=== PATIENT | male | born 1940 | race Caucasian/White ===

== ENCOUNTER 2022-08-03 04:08 | Day surgery (SDC) | payer OTHER, BC ==
[2022-07-27 15:16] VITALS: BMI 33.6
[2022-08-03] MEDS ORDERED: DEXMEDETOMIDINE HCL 200 MCG/2 ML IVPB ONE (08:28)
[2022-08-03] MEDS ORDERED: MIDAZOLAM HCL 2 MG/2 ML SINGLE DOSE VIAL ONE (08:34)
[2022-08-03] MEDS ORDERED: FENTANYL CITRATE/PF 50 MCG/ML VIAL ONE (08:34)
[2022-08-03] MEDS ORDERED: ceFAZolin SODIUM 1 GM VIAL ONE (09:18)
[2022-08-03] MEDS ORDERED: ceFAZolin SODIUM 1 GM VIAL IVPB ONE (09:20)
[2022-08-03] MEDS ORDERED: PROPOFOL 20 ML ONE (09:20)
[2022-08-03] MEDS ORDERED: LIDOCAINE HCL 1%, 10 MG/ML (20ML VIAL) INF ONE ×2 (09:26)
[2022-08-03] MEDS ORDERED: HEPARIN NA (PORCINE) 5,000 UNITS/ML 1ML VIAL ONE (09:39)
[2022-08-03] MEDS ORDERED: PROMETHAZINE HCL 25 MG/1 ML VIAL IVPUSH PRN (10:27)
[2022-08-03] MEDS ORDERED: oxyCODONE HCL 5 MG TABLET PO PRN ×2 (10:27)
[2022-08-03] MEDS ORDERED: ONDANSETRON 4 MG/2 ML VIAL IVPUSH PRN (10:27)
[2022-08-03] MEDS ORDERED: KETOROLAC TROMETHAMINE 30 MG/1 ML VIAL IVPUSH ONE (10:28)
[2022-08-03] MEDS ORDERED: LACTATED RINGERS SOLUTION 1,000 ML IV SCH (10:30)
[2022-08-03] MEDS ORDERED: CLOPIDOGREL BISULFATE 75 MG TABLET (FP) PO ONE (10:35)
[2022-08-03] MEDS ORDERED: KETOROLAC TROMETHAMINE 30 MG/1 ML VIAL ONE (11:22)
[2022-08-03 12:21] VITALS: TEMP 98.7
[2022-08-03 12:38] VITALS: BP 140/56; PULSE 64; RESP 20
== END 2022-08-03 12:41 | disposition home or self-care (01) ==
LOC: JASU-SURG 04:08
PROVIDERS: ATTEND Surgery Vascular Surgery
PROC: 047U3ZZ Dilation of Left Peroneal Artery, Percutaneous Approach (ICD-10-PCS; 2022-08-03)
PROC: 047L3DZ Dilation of Left Femoral Artery with Intraluminal Device, Percutaneous Approach (ICD-10-PCS; principal; 2022-08-03 10:30)
DX: I73.9 Peripheral vascular disease, unspecified (principal); E11.622 Type 2 diabetes mellitus with other skin ulcer; L97.929 Non-pressure chronic ulcer of unspecified part of left lower leg with unspecified severity; Z79.85 Long-term (current) use of injectable non-insulin antidiabetic drugs; Z79.84 Long term (current) use of oral hypoglycemic drugs
CPT/HCPCS: 37227; 37229; C1877; 76000-TC-FY; 82962; 94760; C1725; C1760; J1644

== ENCOUNTER 2024-06-12 10:56 | Inpatient (IN) | payer OTHER, BC ==
[2024-06-12] MEDS ORDERED: ACETAMINOPHEN 500 MG TABLET (FP) ONE (12:32)
[2024-06-12] MEDS: ACETAMINOPHEN 500 MG TABLET (FP) PO ONE (12:45)
[2024-06-12 12:57] LABS: BASO % 1.1 % (0-2.0); EOS % 1.1 % (0-4.5); HEMATOCRIT 27.7 % (35.4-49); HEMOGLOBIN 8.8 GM/dL (11.7-16.9); LYMPH % 8.9 % (8-40); MCH 30.3 pg (25.7-33.7); MCHC 31.7 g/dl (32.0-35.9); MEAN CELL VOLUME 95.4 fl (80-96); MEAN PLT VOLUME 8.6 fl (7.5-11.1); MONO % 7.6 % (3.8-10.2); NEUT % 81.3 % (42.8-82.8); PLATELET COUNT 416 10^3/uL (134-434); WHITE BLOOD COUNT 11.9 K/mm3 (4.0-10.0)
[2024-06-12 13:02] LABS: INR 1.66 (0.83-1.09); PROTHROMBIN TIME (PATIENT) 18.8 SEC (9.7-13.0)
[2024-06-12 13:05] LABS: ACTIVATED PTT 37.2 SECONDS (25.2-36.5)
[2024-06-12 13:14] LABS: POTASSIUM 5.3 mmol/L (3.5-5.1)
[2024-06-12 13:29] LABS: ALBUMIN 2.9 g/dl (3.4-5.0); BLOOD UREA NITROGEN 62.5 mg/dL (7-18); CALCIUM 8.6 mg/dL (8.5-10.1); MAGNESIUM 2.5 mg/dL (1.8-2.4)
[2024-06-12 13:32] LABS: CREATININE 1.8 mg/dL (0.55-1.3); PHOSPHOROUS 3.6 mg/dL (2.5-4.9)
[2024-06-12 13:33] LABS: BILIRUBIN,TOTAL 0.4 mg/dL (0.2-1)
[2024-06-12 13:34] LABS: TOT PROT 6.5 g/dl (6.4-8.2)
[2024-06-12] MEDS ORDERED: VANCOMYCIN HCL 1,500 MG in DEXTROSE 5%-WATER - 500 ML IVPB ONE (13:52)
[2024-06-12] MEDS ORDERED: SODIUM ZIRCONIUM CYCLOSILICATE (LOKELMA) 10 GM PACKET ONE (14:28)
[2024-06-12] MEDS ORDERED: PIPERACILLIN/TAZOB 2.25 GM 2.25 GM/50 ML BAG IVPB ONE (14:29)
[2024-06-12] MEDS: PIPERACILLIN/TAZOB 2.25 GM 2.25 GM in DEXTROSE 5%-WATER - 50 ML IVPB ONE (14:47)
[2024-06-12] MEDS: SODIUM ZIRCONIUM CYCLOSILICATE (LOKELMA) 5 GM PACKET PO ONE (14:47)
[2024-06-12] MEDS: VANCOMYCIN PREMIX 1.5 GM 1,500 MG/300 ML BAG IVPB ONE (15:44)
[2024-06-12] MEDS ORDERED: INSULIN ASPART SLIDING SCALE (NOVOLOG) 1 VIAL SQ SCH (16:30)
[2024-06-12 17:35] VITALS: BMI 30.6
[2024-06-12] MEDS: APIXABAN 2.5 MG TABLET PO SCH (21:24)
[2024-06-12] MEDS: TAMSULOSIN HCL 0.4 MG CAP PO SCH (21:24)
[2024-06-13] MEDS: ACETAMINOPHEN 500 MG TABLET (FP) PO PRN (04:01)
[2024-06-13] MEDS: PIOGLITAZONE HCL 30 MG TABLET PO SCH (06:03)
[2024-06-13] MEDS: INSULIN ASPART SLIDING SCALE (NOVOLOG) 1 VIAL SQ SCH (06:03)
[2024-06-13] MEDS: FOLIC ACID 1 MG TABLET (FP) PO SCH (09:26)
[2024-06-13] MEDS: FUROSEMIDE 40 MG TABLET (FP) PO SCH (09:26)
[2024-06-13] MEDS: FINASTERIDE 5 MG TABLET (FP) PO SCH (09:26)
[2024-06-13] MEDS: SACUBITRIL/VALSARTAN 49 MG-51 MG TABLET PO SCH (09:27)
[2024-06-13] MEDS: COLLAGENASE CLOSTRIDIUM HIST. 30 GRAMS TUBE TP SCH (11:48)
[2024-06-13 12:33] LABS: BASO % 1.1 % (0-2.0); EOS % 1.8 % (0-4.5); HEMATOCRIT 30.4 % (35.4-49); HEMOGLOBIN 9.6 GM/dL (11.7-16.9); LYMPH % 8.7 % (8-40); MCH 30.1 pg (25.7-33.7); MCHC 31.8 g/dl (32.0-35.9); MEAN CELL VOLUME 94.7 fl (80-96); MEAN PLT VOLUME 8.4 fl (7.5-11.1); NEUT % 80.4 % (42.8-82.8); PLATELET COUNT 485 10^3/uL (134-434); RBC 3.21 M/mm3 (4.00-5.60); RDW 15.2 % (11.9-15.9); WHITE BLOOD COUNT 12.5 K/mm3 (4.0-10.0)
[2024-06-13] MEDS ORDERED: SODIUM ZIRCONIUM CYCLOSILICATE (LOKELMA) 5 GM PACKET PO ONE ×2 (13:16→14:32)
[2024-06-13 13:58] LABS: POTASSIUM 5.7 mmol/L (3.5-5.1)
[2024-06-13 14:00] LABS: ALBUMIN 3.1 g/dl (3.4-5.0); CALCIUM 8.7 mg/dL (8.5-10.1)
[2024-06-13 14:04] LABS: CREATININE 1.7 mg/dL (0.55-1.3)
[2024-06-13 14:05] LABS: BILIRUBIN,TOTAL 0.4 mg/dL (0.2-1)
[2024-06-13 14:24] LABS: N-TERMINAL BNP 36118.3 pg/ml (5-450)
[2024-06-13] MEDS: PIPERACILLIN/TAZOB 2.25 GM 2.25 GM in DEXTROSE 5%-WATER - 50 ML IVPB SCH (16:17)
[2024-06-13] MEDS: SODIUM ZIRCONIUM CYCLOSILICATE (LOKELMA) 5 GM PACKET PO ONE (17:30)
[2024-06-13] MEDS: VANCOMYCIN PREMIX 1.5 GM 1,500 MG/300 ML BAG IVPB SCH (17:37)
[2024-06-13] MEDS ORDERED: CALCIUM GLUCONATE IN NACL 1 GM/50 ML BAG IVPB ONE (19:30)
[2024-06-13] MEDS: CALCIUM GLUC IN NACL, ISO-OSM 1 GM/50 ML BAG IVPB ONE (20:04)
[2024-06-13 20:16] LABS: POTASSIUM 5.8 mmol/L (3.5-5.1)
[2024-06-13 20:17] LABS: CALCIUM 8.4 mg/dL (8.5-10.1)
[2024-06-13 20:18] LABS: BLOOD UREA NITROGEN 53.7 mg/dL (7-18)
[2024-06-13 20:21] LABS: CREATININE 1.8 mg/dL (0.55-1.3)
[2024-06-13] MEDS: ROSUVASTATIN CA 5 MG TABLET PO SCH (21:09)
[2024-06-14] MEDS: SODIUM ZIRCONIUM CYCLOSILICATE (LOKELMA) 5 GM PACKET PO ONE (02:21)
[2024-06-14] MEDS ORDERED: PIPERACILLIN/TAZOBACTAM 2.25 GM VIAL IVPB ONE (08:13)
[2024-06-14 09:50] LABS: BASO % 1.4 % (0-2.0); EOS % 3.3 % (0-4.5); HEMATOCRIT 28.2 % (35.4-49); HEMOGLOBIN 9.1 GM/dL (11.7-16.9); LYMPH % 10.6 % (8-40); MCH 30.6 pg (25.7-33.7); MCHC 32.2 g/dl (32.0-35.9); MEAN CELL VOLUME 94.8 fl (80-96); MEAN PLT VOLUME 8.4 fl (7.5-11.1); MONO % 7.5 % (3.8-10.2); NEUT % 77.2 % (42.8-82.8); PLATELET COUNT 427 10^3/uL (134-434); RBC 2.97 M/mm3 (4.00-5.60)
[2024-06-14 10:02] LABS: POTASSIUM 4.6 mmol/L (3.5-5.1)
[2024-06-14 10:05] LABS: CALCIUM 8.5 mg/dL (8.5-10.1)
[2024-06-14 10:06] LABS: ALBUMIN 2.7 g/dl (3.4-5.0); MAGNESIUM 2.2 mg/dL (1.8-2.4)
[2024-06-14 10:09] LABS: CREATININE 1.7 mg/dL (0.55-1.3); PHOSPHOROUS 3.8 mg/dL (2.5-4.9)
[2024-06-14 10:10] LABS: BILIRUBIN,TOTAL 0.4 mg/dL (0.2-1); TOT PROT 6.2 g/dl (6.4-8.2)
[2024-06-14] MEDS: ASPIRIN COATED 81 MG TABLET.EC PO SCH (18:46)
[2024-06-15 10:11] LABS: BASO % 1.6 % (0-2.0); EOS % 4.3 % (0-4.5); HEMATOCRIT 28.7 % (35.4-49); HEMOGLOBIN 9.1 GM/dL (11.7-16.9); LYMPH % 11.4 % (8-40); MCHC 31.8 g/dl (32.0-35.9); MEAN CELL VOLUME 94.6 fl (80-96); MEAN PLT VOLUME 8.4 fl (7.5-11.1); MONO % 8.1 % (3.8-10.2); NEUT % 74.6 % (42.8-82.8); PLATELET COUNT 454 10^3/uL (134-434); RBC 3.04 M/mm3 (4.00-5.60); RDW 15.3 % (11.9-15.9); WHITE BLOOD COUNT 11.2 K/mm3 (4.0-10.0)
[2024-06-15] MEDS: SODIUM ZIRCONIUM CYCLOSILICATE (LOKELMA) 5 GM PACKET PO SCH (10:52)
[2024-06-15 11:00] LABS: POTASSIUM 5.4 mmol/L (3.5-5.1)
[2024-06-15 11:02] LABS: ALBUMIN 2.7 g/dl (3.4-5.0); CALCIUM 8.2 mg/dL (8.5-10.1)
[2024-06-15 11:03] LABS: MAGNESIUM 2.2 mg/dL (1.8-2.4)
[2024-06-15 11:05] LABS: BLOOD UREA NITROGEN 37.6 mg/dL (7-18)
[2024-06-15 11:06] LABS: CREATININE 1.9 mg/dL (0.55-1.3)
[2024-06-15 11:08] LABS: BILIRUBIN,TOTAL 0.4 mg/dL (0.2-1); PHOSPHOROUS 4.1 mg/dL (2.5-4.9)
[2024-06-15 11:10] LABS: TOT PROT 6.2 g/dl (6.4-8.2)
[2024-06-15] MEDS: VANCOMYCIN/WATER 1250 MG 1,250 MG/250 ML BAG IVPB SCH (15:05)
[2024-06-17 10:27] LABS: BASO % 1.8 % (0-2.0); EOS % 4.8 % (0-4.5); HEMATOCRIT 27.5 % (35.4-49); HEMOGLOBIN 8.9 GM/dL (11.7-16.9); LYMPH % 10.3 % (8-40); MCH 30.6 pg (25.7-33.7); MCHC 32.4 g/dl (32.0-35.9); MEAN CELL VOLUME 94.4 fl (80-96); MEAN PLT VOLUME 8.2 fl (7.5-11.1); MONO % 8.1 % (3.8-10.2); PLATELET COUNT 412 10^3/uL (134-434); RBC 2.92 M/mm3 (4.00-5.60); RDW 15.1 % (11.9-15.9); WHITE BLOOD COUNT 10.6 K/mm3 (4.0-10.0)
[2024-06-17 10:46] LABS: POTASSIUM 5.1 mmol/L (3.5-5.1)
[2024-06-17 10:54] LABS: CALCIUM 7.9 mg/dL (8.5-10.1)
[2024-06-17 10:55] LABS: ALBUMIN 2.7 g/dl (3.4-5.0); MAGNESIUM 2.2 mg/dL (1.8-2.4)
[2024-06-17 10:58] LABS: PHOSPHOROUS 4.4 mg/dL (2.5-4.9)
[2024-06-17 10:59] LABS: BILIRUBIN,TOTAL 0.3 mg/dL (0.2-1); TOT PROT 6.3 g/dl (6.4-8.2)
[2024-06-18] MEDS: DOCUSATE SODIUM 100 MG CAPSULE (FP) PO ONE (04:32)
[2024-06-18 10:05] LABS: BASO % 1.8 % (0-2.0); EOS % 5.2 % (0-4.5); HEMATOCRIT 27.9 % (35.4-49); HEMOGLOBIN 8.8 GM/dL (11.7-16.9); LYMPH % 9.6 % (8-40); MCH 29.9 pg (25.7-33.7); MCHC 31.4 g/dl (32.0-35.9); MEAN CELL VOLUME 95.3 fl (80-96); MEAN PLT VOLUME 8.5 fl (7.5-11.1); MONO % 8.1 % (3.8-10.2); NEUT % 75.3 % (42.8-82.8); PLATELET COUNT 378 10^3/uL (134-434); RBC 2.93 M/mm3 (4.00-5.60); RDW 15.1 % (11.9-15.9); WHITE BLOOD COUNT 10.9 K/mm3 (4.0-10.0)
[2024-06-18 10:07] LABS: INR 1.24 (0.83-1.09); PROTHROMBIN TIME (PATIENT) 14.2 SEC (9.7-13.0)
[2024-06-18 10:46] LABS: POTASSIUM 4.5 mmol/L (3.5-5.1)
[2024-06-18 10:52] LABS: CALCIUM 8.3 mg/dL (8.5-10.1)
[2024-06-18 10:53] LABS: ALBUMIN 2.7 g/dl (3.4-5.0); BLOOD UREA NITROGEN 41.3 mg/dL (7-18); MAGNESIUM 2.3 mg/dL (1.8-2.4)
[2024-06-18 10:56] LABS: PHOSPHOROUS 4.4 mg/dL (2.5-4.9)
[2024-06-18 10:57] LABS: BILIRUBIN,TOTAL 0.4 mg/dL (0.2-1)
[2024-06-19 09:44] LABS: HEMATOCRIT 28.5 % (35.4-49); MCH 30.3 pg (25.7-33.7); MCHC 31.7 g/dl (32.0-35.9); MEAN CELL VOLUME 95.7 fl (80-96); MEAN PLT VOLUME 8.8 fl (7.5-11.1); PLATELET COUNT 396 10^3/uL (134-434); RBC 2.98 M/mm3 (4.00-5.60); RDW 15.6 % (11.9-15.9); WHITE BLOOD COUNT 8.8 K/mm3 (4.0-10.0)
[2024-06-19 09:47] LABS: INR 1.21 (0.83-1.09); PROTHROMBIN TIME (PATIENT) 13.6 SEC (9.7-13.0)
[2024-06-19 10:13] LABS: POTASSIUM 4.6 mmol/L (3.5-5.1)
[2024-06-19 10:17] LABS: ALBUMIN 2.9 g/dl (3.4-5.0); BLOOD UREA NITROGEN 40.7 mg/dL (7-18); CALCIUM 8.4 mg/dL (8.5-10.1); MAGNESIUM 2.5 mg/dL (1.8-2.4)
[2024-06-19 10:21] LABS: PHOSPHOROUS 4.5 mg/dL (2.5-4.9)
[2024-06-19 10:22] LABS: BILIRUBIN,TOTAL 0.5 mg/dL (0.2-1); TOT PROT 6.5 g/dl (6.4-8.2)
[2024-06-19] MEDS: LIDOCAINE HCL 1%, 10 MG/ML (20ML VIAL) INF ONE (13:59)
[2024-06-19] MEDS: BUPIVACAINE HCL/PF 0.5% (5MG/ML) 10 ML VIAL IJ ONE (13:59)
[2024-06-19] MEDS: PIPERACILLIN/TAZOB 2.25 GM 2.25 GM/50 ML BAG IVPB SCH (21:39)
[2024-06-20] MEDS: oxyCODONE HCL 5 MG TABLET PO ONE (00:43)
[2024-06-20] MEDS: PIOGLITAZONE HCL 30 MG TABLET PO SCH (07:46)
[2024-06-20] MEDS: INSULIN ASPART SLIDING SCALE (NOVOLOG) 1 VIAL SQ SCH (07:46)
[2024-06-20] MEDS: TAMSULOSIN HCL 0.4 MG CAP PO SCH (08:50)
[2024-06-20 09:03] LABS: POTASSIUM 4.6 mmol/L (3.5-5.1)
[2024-06-20 09:12] LABS: CALCIUM 8.8 mg/dL (8.5-10.1)
[2024-06-20 09:13] LABS: BLOOD UREA NITROGEN 39.3 mg/dL (7-18); MAGNESIUM 2.4 mg/dL (1.8-2.4)
[2024-06-20 09:16] LABS: CREATININE 1.8 mg/dL (0.55-1.3); PHOSPHOROUS 3.6 mg/dL (2.5-4.9)
[2024-06-20 09:18] LABS: BILIRUBIN,TOTAL 0.5 mg/dL (0.2-1)
[2024-06-20] MEDS: SODIUM ZIRCONIUM CYCLOSILICATE (LOKELMA) 5 GM PACKET PO SCH (09:24)
[2024-06-20] MEDS: FINASTERIDE 5 MG TABLET (FP) PO SCH (09:25)
[2024-06-20] MEDS: SACUBITRIL/VALSARTAN 24 MG-26 MG TABLET PO SCH (09:25)
[2024-06-20] MEDS: FOLIC ACID 1 MG TABLET (FP) PO SCH (09:25)
[2024-06-20] MEDS: FUROSEMIDE 40 MG TABLET (FP) PO SCH (09:25)
[2024-06-20] MEDS: DOCUSATE SODIUM 100 MG CAPSULE (FP) PO SCH (09:25)
[2024-06-20] MEDS: COLLAGENASE CLOSTRIDIUM HIST. 30 GRAMS TUBE TP SCH (09:54)
[2024-06-20] MEDS ORDERED: SACUBITRIL/VALSARTAN 49 MG-51 MG TABLET PO SCH (10:00)
[2024-06-20 11:09] LABS: BASO % 2.2 % (0-2.0); EOS % 4.7 % (0-4.5); HEMATOCRIT 30.4 % (35.4-49); HEMOGLOBIN 9.6 GM/dL (11.7-16.9); LYMPH % 9.1 % (8-40); MCH 30.2 pg (25.7-33.7); MCHC 31.4 g/dl (32.0-35.9); MEAN CELL VOLUME 96.1 fl (80-96); MEAN PLT VOLUME 8.6 fl (7.5-11.1); MONO % 13.1 % (3.8-10.2); NEUT % 70.9 % (42.8-82.8); PLATELET COUNT 394 10^3/uL (134-434); RBC 3.17 M/mm3 (4.00-5.60); RDW 15.3 % (11.9-15.9); WHITE BLOOD COUNT 11.3 K/mm3 (4.0-10.0)
[2024-06-20] MEDS: ACETAMINOPHEN 500 MG TABLET (FP) PO PRN (11:10)
[2024-06-20] MEDS: VANCOMYCIN/WATER 1250 MG 1,250 MG/250 ML BAG IVPB SCH (16:13)
[2024-06-20] MEDS: ROSUVASTATIN CA 5 MG TABLET PO SCH (21:21)
[2024-06-20] MEDS: oxyCODONE HCL 5 MG TABLET PO PRN (22:05)
[2024-06-21 09:05] LABS: HEMATOCRIT 30.3 % (35.4-49); HEMOGLOBIN 9.6 GM/dL (11.7-16.9); MCH 29.9 pg (25.7-33.7); MCHC 31.6 g/dl (32.0-35.9); MEAN CELL VOLUME 94.7 fl (80-96); MEAN PLT VOLUME 8.8 fl (7.5-11.1); PLATELET COUNT 383 10^3/uL (134-434); RBC 3.19 M/mm3 (4.00-5.60); RDW 15.4 % (11.9-15.9); WHITE BLOOD COUNT 10.7 K/mm3 (4.0-10.0)
[2024-06-21] MEDS: APIXABAN 2.5 MG TABLET PO SCH (09:10)
[2024-06-21 09:29] LABS: POTASSIUM 4.5 mmol/L (3.5-5.1)
[2024-06-21 09:39] LABS: ALBUMIN 2.9 g/dl (3.4-5.0); BLOOD UREA NITROGEN 37.4 mg/dL (7-18)
[2024-06-21 09:41] LABS: CALCIUM 8.6 mg/dL (8.5-10.1); MAGNESIUM 2.3 mg/dL (1.8-2.4); PHOSPHOROUS 4.1 mg/dL (2.5-4.9)
[2024-06-21 09:43] LABS: BILIRUBIN,TOTAL 0.5 mg/dL (0.2-1); TOT PROT 6.8 g/dl (6.4-8.2)
[2024-06-21 14:27] VITALS: RESP 18
[2024-06-22 08:17] LABS: HEMATOCRIT 28.7 % (35.4-49); MCH 30.1 pg (25.7-33.7); MCHC 31.6 g/dl (32.0-35.9); MEAN CELL VOLUME 95.3 fl (80-96); MEAN PLT VOLUME 9.3 fl (7.5-11.1); PLATELET COUNT 350 10^3/uL (134-434); RBC 3.01 M/mm3 (4.00-5.60); RDW 15.4 % (11.9-15.9); WHITE BLOOD COUNT 7.6 K/mm3 (4.0-10.0)
[2024-06-22 08:28] LABS: POTASSIUM 4.6 mmol/L (3.5-5.1)
[2024-06-22 08:30] LABS: CALCIUM 8.5 mg/dL (8.5-10.1)
[2024-06-22 08:31] LABS: BLOOD UREA NITROGEN 48.2 mg/dL (7-18)
[2024-06-22 08:34] LABS: CREATININE 2.1 mg/dL (0.55-1.3)
[2024-06-22 09:56] LABS: ANISOCYTOSIS 0; HELMET CELLS 0; HOWELL-JOLLY BODIES 0; MACROCYTOSIS 0; OVALOCYTE 0; ROULEAU 0; SICKELED CELLS 0; TARGET CELLS 0; TEAR DROP CELLS 0; TOXIC GRANULATION 0
[2024-06-22] MEDS: FUROSEMIDE 40 MG/4 ML INJECTABLE VIAL IVPUSH ONE (12:22)
[2024-06-23 08:35] LABS: POTASSIUM 4.6 mmol/L (3.5-5.1)
[2024-06-23 08:37] LABS: ALBUMIN 2.7 g/dl (3.4-5.0); BLOOD UREA NITROGEN 44.2 mg/dL (7-18); CALCIUM 8.5 mg/dL (8.5-10.1)
[2024-06-23 08:38] LABS: BASO % 4.4 % (0-2.0); EOS % 8.9 % (0-4.5); HEMATOCRIT 29.1 % (35.4-49); HEMOGLOBIN 9.3 GM/dL (11.7-16.9); LYMPH % 21.6 % (8-40); MCH 30.1 pg (25.7-33.7); MCHC 31.9 g/dl (32.0-35.9); MEAN CELL VOLUME 94.4 fl (80-96); MEAN PLT VOLUME 9.4 fl (7.5-11.1); MONO % 13.8 % (3.8-10.2); NEUT % 51.3 % (42.8-82.8); PLATELET COUNT 373 10^3/uL (134-434); RBC 3.08 M/mm3 (4.00-5.60); RDW 15.5 % (11.9-15.9); WHITE BLOOD COUNT 6.8 K/mm3 (4.0-10.0)
[2024-06-23 08:40] LABS: CREATININE 2.1 mg/dL (0.55-1.3)
[2024-06-23 08:42] LABS: BILIRUBIN,TOTAL 0.4 mg/dL (0.2-1); TOT PROT 6.2 g/dl (6.4-8.2)
[2024-06-23] MEDS ORDERED: FUROSEMIDE 40 MG/4 ML INJECTABLE VIAL IVPUSH ONE (12:00)
[2024-06-23] MEDS: FUROSEMIDE 40 MG TABLET (FP) PO ONE (12:01)
[2024-06-23 16:09] VITALS: BP 112/52; PULSE 59; TEMP 97.6
== END 2024-06-23 13:58 | disposition home or self-care (01) | DRG 256 ==
LOC: JER 10:56 → JERBED 14:17 → J6S 16:47
PROVIDERS: ADMIT Internal Medicine; ATTEND Internal Medicine
PROC: 0Y6W0Z0 Detachment at Left 4th Toe, Complete, Open Approach (ICD-10-PCS; principal; 2024-06-19 12:30)
DX: E11.52 Type 2 diabetes mellitus with diabetic peripheral angiopathy with gangrene (principal); I13.0 Hypertensive heart and chronic kidney disease with heart failure and stage 1 through stage 4 chronic kidney disease, or unspecified chronic kidney disease; I50.20 Unspecified systolic (congestive) heart failure; I96 Gangrene, not elsewhere classified; M86.9 Osteomyelitis, unspecified; L03.116 Cellulitis of left lower limb; E11.621 Type 2 diabetes mellitus with foot ulcer; L97.519 Non-pressure chronic ulcer of other part of right foot with unspecified severity; L97.529 Non-pressure chronic ulcer of other part of left foot with unspecified severity; E11.69 Type 2 diabetes mellitus with other specified complication; E87.5 Hyperkalemia; N18.9 Chronic kidney disease, unspecified
CPT/HCPCS: 36415; 73630-TC-LT; 73660-TC-LT-FY; 73718-TC-LT; 73718-TC-RT; 80048; 80053; 82728; 82962; 83036; 83550; 83735; 83880; 84100; 85025; 85027; 85610; 85651; 85730; 86140; 86850; 86900; 86901; 87070; 87186; 87205; 88305-TC; 88311-TC; 93005; 93010; 93925-TC; 99285-25; G0463-25; G0480

== ENCOUNTER 2024-09-15 11:04 | Inpatient (IN) | payer OTHER, BC ==
[2024-09-15 12:54] LABS: BASO % 1.3 % (0-2.0); EOS % 2.1 % (0-4.5); HEMATOCRIT 33.2 % (35.4-49); HEMOGLOBIN 10.3 GM/dL (11.7-16.9); LYMPH % 11.1 % (8-40); MCH 29.1 pg (25.7-33.7); MEAN CELL VOLUME 93.8 fl (80-96); MEAN PLT VOLUME 8.7 fl (7.5-11.1); MONO % 10.4 % (3.8-10.2); NEUT % 75.1 % (42.8-82.8); PLATELET COUNT 467 10^3/uL (134-434); RBC 3.54 M/mm3 (4.00-5.60); RDW 17.6 % (11.9-15.9); WHITE BLOOD COUNT 11.2 K/mm3 (4.0-10.0)
[2024-09-15 13:00] LABS: INR 1.59 (0.83-1.09); PROTHROMBIN TIME (PATIENT) 17.5 SEC (9.7-13.0)
[2024-09-15 13:03] LABS: ACTIVATED PTT 38.2 SECONDS (25.2-36.5)
[2024-09-15 13:12] LABS: POTASSIUM 5.3 mmol/L (3.5-5.1)
[2024-09-15 13:15] LABS: ALBUMIN 3.3 g/dl (3.4-5.0); BLOOD UREA NITROGEN 52.7 mg/dL (7-18); CALCIUM 8.8 mg/dL (8.5-10.1)
[2024-09-15 13:20] LABS: BILIRUBIN,TOTAL 0.5 mg/dL (0.2-1); TOT PROT 7.2 g/dl (6.4-8.2)
[2024-09-15 13:38] LABS: ERYTHROCYTE SEDIMENTATION RATE 44 mm/hr (0-20)
[2024-09-15] MEDS ORDERED: ERTAPENEM SODIUM 1 GM VIAL ONE (16:13)
[2024-09-15] MEDS ORDERED: SODIUM ZIRCONIUM CYCLOSILICATE (LOKELMA) 10 GM PACKET ONE (16:14)
[2024-09-15] MEDS: ERTAPENEM SODIUM 1 GM in SODIUM CHLORIDE 50 ML IVPB SCH (16:25)
[2024-09-15] MEDS: SODIUM ZIRCONIUM CYCLOSILICATE (LOKELMA) 5 GM PACKET PO ONE (16:25)
[2024-09-15 18:11] VITALS: BMI 71.6
[2024-09-15] MEDS: INSULIN ASPART SLIDING SCALE (NOVOLOG) 1 VIAL SQ SCH (18:35)
[2024-09-15] MEDS: SACUBITRIL/VALSARTAN 24 MG-26 MG TABLET PO SCH (21:47)
[2024-09-15] MEDS: TAMSULOSIN HCL 0.4 MG CAP PO SCH (21:47)
[2024-09-15] MEDS: ROSUVASTATIN CA 5 MG TABLET PO SCH (21:47)
[2024-09-15] MEDS: DOCUSATE SODIUM 100 MG CAPSULE (FP) PO SCH (21:48)
[2024-09-15] MEDS: ENOXAPARIN NA (PORCINE) 100 MG/1 ML DISP.SYRIN SQ SCH (21:48)
[2024-09-15] MEDS: COLLAGENASE CLOSTRIDIUM HIST. 30 GRAMS TUBE TP SCH (21:49)
[2024-09-16] MEDS: PIPERACILLIN/TAZOB 3.375 GM 50 ML IVPB SCH (03:24)
[2024-09-16] MEDS: ACETAMINOPHEN 325 MG TABLET (FP) PO ONE ×2 (05:10→06:21)
[2024-09-16] MEDS: oxyCODONE HCL 5 MG TABLET PO ONE ×3 (05:13→22:25)
[2024-09-16 09:01] LABS: BASO % 2.4 % (0-2.0); EOS % 6.2 % (0-4.5); HEMOGLOBIN 10.2 GM/dL (11.7-16.9); LYMPH % 19.3 % (8-40); MCH 29.6 pg (25.7-33.7); MEAN CELL VOLUME 92.6 fl (80-96); NEUT % 57.1 % (42.8-82.8); PLATELET COUNT 453 10^3/uL (134-434); RBC 3.45 M/mm3 (4.00-5.60); RDW 17.1 % (11.9-15.9); WHITE BLOOD COUNT 7.4 K/mm3 (4.0-10.0)
[2024-09-16 09:24] LABS: POTASSIUM 4.7 mmol/L (3.5-5.1)
[2024-09-16 09:30] LABS: BLOOD UREA NITROGEN 47.5 mg/dL (7-18)
[2024-09-16 09:32] LABS: CALCIUM 8.7 mg/dL (8.5-10.1)
[2024-09-16 09:33] LABS: CREATININE 1.8 mg/dL (0.55-1.3)
[2024-09-16] MEDS: GABAPENTIN 100 MG CAPSULE PO SCH (11:21)
[2024-09-16] MEDS: PANTOPRAZOLE 40 MG TABLET PO SCH (11:21)
[2024-09-16] MEDS: FINASTERIDE 5 MG TABLET (FP) PO SCH (11:21)
[2024-09-16] MEDS: CHOLECALCIFEROL (VIT D3) 1,000 UNIT (25 MCG) TABLET PO SCH (11:22)
[2024-09-16] MEDS: TORSEMIDE 20 MG TABLET (FP) PO SCH (11:22)
[2024-09-16] MEDS: ACETAMINOPHEN 500 MG TABLET (FP) PO ONE (22:25)
[2024-09-16] MEDS: VANCOMYCIN 1 GM PREMIX (F) 1 GM/200 ML BAG IVPB ONE (23:15)
[2024-09-17 09:12] LABS: BASO % 2.8 % (0-2.0); EOS % 5.9 % (0-4.5); HEMATOCRIT 31.9 % (35.4-49); HEMOGLOBIN 10.2 GM/dL (11.7-16.9); LYMPH % 14.5 % (8-40); MCH 29.5 pg (25.7-33.7); MCHC 32.2 g/dl (32.0-35.9); MEAN CELL VOLUME 91.8 fl (80-96); MEAN PLT VOLUME 8.7 fl (7.5-11.1); MONO % 14.3 % (3.8-10.2); NEUT % 62.5 % (42.8-82.8); PLATELET COUNT 475 10^3/uL (134-434); RBC 3.47 M/mm3 (4.00-5.60); RDW 17.5 % (11.9-15.9); WHITE BLOOD COUNT 7.7 K/mm3 (4.0-10.0)
[2024-09-17 09:34] LABS: POTASSIUM 4.7 mmol/L (3.5-5.1)
[2024-09-17 09:37] LABS: ALBUMIN 2.9 g/dl (3.4-5.0); CALCIUM 8.3 mg/dL (8.5-10.1); MAGNESIUM 2.3 mg/dL (1.8-2.4)
[2024-09-17 09:40] LABS: CREATININE 1.8 mg/dL (0.55-1.3)
[2024-09-17 09:42] LABS: BILIRUBIN,TOTAL 0.6 mg/dL (0.2-1); TOT PROT 6.7 g/dl (6.4-8.2)
[2024-09-17] MEDS ORDERED: LIDOCAINE HCL 1%, 10 MG/ML (20ML VIAL) ONE (16:36)
[2024-09-17] MEDS ORDERED: ONDANSETRON 4 MG/2 ML VIAL IVPUSH PRN ×2 (17:00→19:32)
[2024-09-17] MEDS: ceFAZolin SODIUM 1 GM VIAL IVPB ONE (17:10)
[2024-09-17] MEDS ORDERED: HEPARIN NA (PORCINE) 5,000 UNITS/ML 1ML VIAL ONE (17:39)
[2024-09-17] MEDS ORDERED: MIDAZOLAM HCL 2 MG/2 ML SINGLE DOSE VIAL ONE (17:47)
[2024-09-17] MEDS ORDERED: KETAMINE HCL 200 MG/20 ML VIAL ONE (17:47)
[2024-09-17] MEDS ORDERED: METOPROLOL TARTRATE 5 MG/5 ML VIAL ONE (18:29)
[2024-09-17] MEDS ORDERED: PROTAMINE SULFATE 50 MG/5 ML VIAL ONE (18:39)
[2024-09-17] MEDS ORDERED: ONDANSETRON 4 MG/2 ML VIAL ONE (19:01)
[2024-09-17] MEDS: LACTATED RINGERS SOLUTION 1,000 ML IV SCH (21:14)
[2024-09-17] MEDS: DOCUSATE SODIUM 100 MG CAPSULE (FP) PO SCH (21:18)
[2024-09-17] MEDS: TAMSULOSIN HCL 0.4 MG CAP PO SCH (21:19)
[2024-09-17] MEDS: ROSUVASTATIN CA 5 MG TABLET PO SCH (21:19)
[2024-09-17] MEDS: oxyCODONE HCL 5 MG TABLET PO PRN (22:16)
[2024-09-17] MEDS: ENOXAPARIN NA (PORCINE) 100 MG/1 ML DISP.SYRIN SQ SCH (22:28)
[2024-09-18] MEDS: PIPERACILLIN/TAZOB 3.375 GM 50 ML IVPB SCH (02:55)
[2024-09-18] MEDS: INSULIN ASPART SLIDING SCALE (NOVOLOG) 1 VIAL SQ SCH (06:25)
[2024-09-18 08:20] LABS: BASO % 1.3 % (0-2.0); EOS % 4.3 % (0-4.5); HEMATOCRIT 32.2 % (35.4-49); HEMOGLOBIN 9.7 GM/dL (11.7-16.9); LYMPH % 12.8 % (8-40); MCH 28.4 pg (25.7-33.7); MCHC 30.2 g/dl (32.0-35.9); MEAN CELL VOLUME 93.9 fl (80-96); MEAN PLT VOLUME 8.9 fl (7.5-11.1); MONO % 11.5 % (3.8-10.2); NEUT % 70.1 % (42.8-82.8); PLATELET COUNT 473 10^3/uL (134-434); RBC 3.43 M/mm3 (4.00-5.60); RDW 17.1 % (11.9-15.9); WHITE BLOOD COUNT 12.1 K/mm3 (4.0-10.0)
[2024-09-18] MEDS: LACTATED RINGERS SOLUTION 1,000 ML IV SCH (08:26)
[2024-09-18 09:05] LABS: ALBUMIN 2.7 g/dl (3.4-5.0); BLOOD UREA NITROGEN 41.4 mg/dL (7-18); CALCIUM 8.2 mg/dL (8.5-10.1); MAGNESIUM 2.3 mg/dL (1.8-2.4)
[2024-09-18 09:08] LABS: CREATININE 1.9 mg/dL (0.55-1.3)
[2024-09-18 09:09] LABS: BILIRUBIN,TOTAL 0.4 mg/dL (0.2-1); TOT PROT 6.2 g/dl (6.4-8.2)
[2024-09-18] MEDS: TORSEMIDE 20 MG TABLET (FP) PO SCH (09:52)
[2024-09-18] MEDS: PANTOPRAZOLE 40 MG TABLET PO SCH (09:52)
[2024-09-18] MEDS: CHOLECALCIFEROL (VIT D3) 1,000 UNIT (25 MCG) TABLET PO SCH (09:52)
[2024-09-18] MEDS: GABAPENTIN 100 MG CAPSULE PO SCH (09:52)
[2024-09-18] MEDS: FINASTERIDE 5 MG TABLET (FP) PO SCH (09:52)
[2024-09-18] MEDS: COLLAGENASE CLOSTRIDIUM HIST. 30 GRAMS TUBE TP SCH (09:53)
[2024-09-18] MEDS: VANCOMYCIN/WATER FOR INJ (PEG) 1,000 MG/200 ML BAG IVPB ONE (18:25)
[2024-09-19 07:50] VITALS: RESP 18
[2024-09-19 08:04] LABS: BASO % 2.8 % (0-2.0); EOS % 11.4 % (0-4.5); HEMATOCRIT 30.5 % (35.4-49); HEMOGLOBIN 9.7 GM/dL (11.7-16.9); LYMPH % 17.5 % (8-40); MCH 29.5 pg (25.7-33.7); MCHC 31.8 g/dl (32.0-35.9); MEAN CELL VOLUME 92.6 fl (80-96); MEAN PLT VOLUME 8.9 fl (7.5-11.1); MONO % 17.8 % (3.8-10.2); NEUT % 50.5 % (42.8-82.8); PLATELET COUNT 439 10^3/uL (134-434); RDW 17.1 % (11.9-15.9); WHITE BLOOD COUNT 8.4 K/mm3 (4.0-10.0)
[2024-09-19 08:22] LABS: POTASSIUM 5.4 mmol/L (3.5-5.1)
[2024-09-19 08:26] LABS: ALBUMIN 2.7 g/dl (3.4-5.0); BLOOD UREA NITROGEN 46.4 mg/dL (7-18); MAGNESIUM 2.4 mg/dL (1.8-2.4)
[2024-09-19 08:29] LABS: CREATININE 2.3 mg/dL (0.55-1.3)
[2024-09-19 08:30] LABS: BILIRUBIN,TOTAL 0.5 mg/dL (0.2-1); TOT PROT 6.4 g/dl (6.4-8.2)
[2024-09-19] MEDS: APIXABAN 2.5 MG TABLET PO SCH (10:14)
[2024-09-19] MEDS: COLLAGENASE CLOSTRIDIUM HIST. 30 GRAMS TUBE TP SCH (10:22)
[2024-09-19 14:17] VITALS: BP 135/51; PULSE 55; TEMP 97.7
== END 2024-09-19 16:48 | disposition home or self-care (01) | DRG 253 ==
LOC: JER 11:04 → JERBED 15:32 → J7W 17:44
PROVIDERS: ADMIT Internal Medicine
PROC: 047U3ZZ Dilation of Left Peroneal Artery, Percutaneous Approach (ICD-10-PCS; 2024-09-17)
PROC: 0Y6U0Z0 Detachment at Left 3rd Toe, Complete, Open Approach (ICD-10-PCS; principal; 2024-09-17 11:30)
PROC: 047N3ZZ Dilation of Left Popliteal Artery, Percutaneous Approach (ICD-10-PCS; 2024-09-17 11:30)
DX: E11.52 Type 2 diabetes mellitus with diabetic peripheral angiopathy with gangrene (principal); I13.0 Hypertensive heart and chronic kidney disease with heart failure and stage 1 through stage 4 chronic kidney disease, or unspecified chronic kidney disease; I50.22 Chronic systolic (congestive) heart failure; L97.528 Non-pressure chronic ulcer of other part of left foot with other specified severity; L97.518 Non-pressure chronic ulcer of other part of right foot with other specified severity; I70.298 Other atherosclerosis of native arteries of extremities, other extremity; E78.5 Hyperlipidemia, unspecified; I48.0 Paroxysmal atrial fibrillation; E11.621 Type 2 diabetes mellitus with foot ulcer; Z96.652 Presence of left artificial knee joint; N40.0 Benign prostatic hyperplasia without lower urinary tract symptoms; E11.43 Type 2 diabetes mellitus with diabetic autonomic (poly)neuropathy; E87.5 Hyperkalemia; I25.10 Atherosclerotic heart disease of native coronary artery without angina pectoris; E11.22 Type 2 diabetes mellitus with diabetic chronic kidney disease; N18.30 Chronic kidney disease, stage 3 unspecified; G47.33 Obstructive sleep apnea (adult) (pediatric); Z95.5 Presence of coronary angioplasty implant and graft; Z89.422 Acquired absence of other left toe(s); Z95.1 Presence of aortocoronary bypass graft; Z85.46 Personal history of malignant neoplasm of prostate; Z79.01 Long term (current) use of anticoagulants; Z95.3 Presence of xenogenic heart valve
CPT/HCPCS: 36415; 73630-TC-LT; 76000-TC-FY; 80048; 80053; 82962; 83735; 85025; 85610; 85651; 85730; 86140; 86850; 86900; 86901; 87040; 88305-TC; 88311-TC; 93005; 93010; 93306-TC; 94760; 99285-25; C1760; J1644